=== PATIENT | female | born 1990 | race American Indian/Alaskan Native ===

== ENCOUNTER 2020-03-31 13:32 | Emergency (ER) | payer SELFPAY ==
[2020-03-31 13:54] VITALS: BP 136/81
--- NOTE | 2020-03-31 15:43 | Emergency Department Report ---
ED General Adult HPI - General Chief complaint: Skin/Abscess/Foreign Body Stated complaint: INFECTION Time Seen by Provider: 03/31/20 15:12 Source: patient Mode of arrival: Ambulatory Limitations: No Limitations - History of Present Illness Initial comments: This very pleasant 29-year-old female presents the emergency department with chief complaint of draining wounds to her upper buttocks lower back and right axilla. Patient has a past medical history of hidradenitis suppurativa HIV, and diabetes herpes simplex. She is currently on Biktarvy. She reports she [place] and does not yet have a primary care doctor or cartoon designer to follow-up with. She states she has been having some drainage from her lower back and right axilla over the past month and she feels like she may have an infection. She also reports she has an outbreak of herpes simplex and is out of her Valtrex. She denies any associated fever, chills, night sweats, headache, dizziness, blurry vision, nausea,, diarrhea, chest pain, shortness of breath. Pain is a 9 out of 10 described as a constant dull throbbing with no alleviating factors. - Related Data Previous Rx's Medication Instructions Recorded Last Taken Type Acetaminophen with Codeine 1 tab PO Q6HR #12 tab 03/31/20 Unknown Rx [Acetaminophen-Codeine #4 TAB] Clindamycin [Clindamycin CAP] 300 mg PO Q8H #30 cap 03/31/20 Unknown Rx Valacyclovir HCl [Valtrex] 1,000 mg PO BID #14 tablet 03/31/20 Unknown Rx Allergies Allergy/AdvReac Type Severity Reaction Status Date / Time No Known Allergies Allergy Verified 03/31/20 13:51 ED Review of Systems ROS: Stated complaint: INFECTION Other details as noted in HPI Comment: All other systems reviewed and negative Constitutional: denies: chills, fever Eyes: denies: eye pain, eye discharge, vision change ENT: denies: ear pain, throat pain Respiratory: denies: cough, shortness of breath, wheezing Cardiovascular: denies: chest pain, palpitations Endocrine: no symptoms reported Gastrointestinal: denies: abdominal pain, nausea, diarrhea Genitourinary: as per HPI, other. denies: urgency, dysuria, discharge Musculoskeletal: denies: back pain, joint swelling, arthralgia Skin: as per HPI, rash, lesions Neurological: denies: headache, weakness, paresthesias Psychiatric: denies: anxiety, depression Hematological/Lymphatic: denies: easy bleeding, easy bruising ED Past Medical Hx - Past Medical History Previous Medical History?: Yes Additional medical history: hidradenitis suppurativa - Surgical History Past Surgical History?: No - Social History Smoking Status: Never Smoker Substance Use Type: None - Medications Home Medications: Home Medications Medication Instructions Recorded Confirmed Last Taken Type Acetaminophen with Codeine 1 tab PO Q6HR #12 tab 03/31/20 Unknown Rx [Acetaminophen-Codeine #4 TAB] Clindamycin [Clindamycin CAP] 300 mg PO Q8H #30 cap 03/31/20 Unknown Rx Valacyclovir HCl [Valtrex] 1,000 mg PO BID #14 tablet 03/31/20 Unknown Rx ED Physical Exam - General Limitations: No Limitations General appearance: alert, in no apparent distress - Head Head exam: Present: atraumatic, normocephalic - Eye Eye exam: Present: normal appearance, PERRL, EOMI Pupils: Present: normal accommodation - ENT ENT exam: Present: normal exam, normal orophraynx, mucous membranes moist - Neck Neck exam: Present: normal inspection, full ROM. Absent: tenderness, meningismus - Respiratory Respiratory exam: Present: normal lung sounds bilaterally. Absent: respiratory distress, wheezes, rales, rhonchi, stridor - Cardiovascular Cardiovascular Exam: Present: regular rate, normal rhythm, normal heart sounds. Absent: systolic murmur, diastolic murmur, rubs, gallop - GI/Abdominal GI/Abdominal exam: Present: soft, normal bowel sounds. Absent: distended, tenderness, guarding, rebound, rigid - Extremities Exam Extremities exam: Present: normal inspection, full ROM, other (There is multiple track-like lesions in the right axilla with no obvious abscess seen. There is a 1 cm opening. No purulent drainage or odor.). Absent: tenderness, normal capillary refill - Back Exam Back exam: Present: normal inspection, tenderness (There is tenderness to the lower back with multiple scars and track-like lesions. One area of drainage on the right lower back.) - Neurological Exam Neurological exam: Present: alert, oriented X3, normal gait. Absent: motor sensory deficit - Psychiatric Psychiatric exam: Present: normal affect, normal mood - Skin Skin exam: Present: warm, dry, intact, normal color. Absent: rash ED Course Vital Signs 03/31/20 13:51 Temperature 99.0 F Pulse Rate 100 H Respiratory 16 Rate Blood Pressure 136/81 O2 Sat by Pulse 99 Oximetry ED Medical Decision Making - Medical Decision Making Patient has pretty severe hidradenitis. I will treat her with antibiotics, pain medication, outpatient follow-up with dermatology and primary care. She also is concerned because she is out of her Valtrex and was having outbreak of her herpes. I will refill this. Recommended warm compresses and return the emerge department any change or worsening symptoms. She had no infectious symptoms such as fever, chills, night sweats or any other symptoms. She was well- appearing and her vitals relatively stable. She was agreeable this plan and will return the emerge part any change or worsening symptoms. She verbalized understanding the diagnosis, treatment plan and follow-up instructions and all of her questions were answered. - Differential Diagnosis abscess, HS, abrasion, cellulitis Critical care attestation.: If time is entered above; I have spent that time in minutes in the direct care o f this critically ill patient, excluding procedure time. ED Disposition Clinical Impression: Hidradenitis suppurativa, Herpes simplex Disposition: DC-01 TO HOME OR SELFCARE Is pt being admited?: No Condition: Stable Instructions: Acute Rash (ED) Prescriptions: Acetaminophen with Codeine [Acetaminophen-Codeine #4 TAB] 1 tab PO Q6HR #12 tab Clindamycin [Clindamycin CAP] 300 mg PO Q8H #30 cap Valacyclovir HCl [Valtrex] 1,000 mg PO BID #14 tablet Time of Disposition: 15:46
== END 2020-03-31 16:04 | disposition home or self-care (01) ==
LOC: ED 13:32
DX: L73.2 Hidradenitis suppurativa (principal); B00.9 Herpesviral infection, unspecified; Z79.2 Long term (current) use of antibiotics; Z79.899 Other long term (current) drug therapy
CPT/HCPCS: 99282

== ENCOUNTER 2020-05-04 10:23 | Emergency (ER) | payer OTHER ==
[2020-05-04 11:31] VITALS: BP 112/72
[2020-05-04] MEDS ORDERED: MORPHINE 4 MG/1 ML INJ IV ONE (17:46)
[2020-05-04] MEDS ORDERED: SODIUM CHLORIDE 0.9% 1000 ML 1,000 ML IV ONE (17:46)
--- NOTE | 2020-05-04 17:48 | Emergency Department Report ---
ED General Adult HPI - General Chief complaint: Hyperglycemia Stated complaint: PCP SAID COME/INFECTION PUI?: No Time Seen by Provider: 05/04/20 17:28 Source: patient, RN notes reviewed, old records reviewed Mode of arrival: Ambulatory Limitations: No Limitations - History of Present Illness Initial comments: The patient was evaluated in the emergency department for symptoms described in the history of present illness. He/she was evaluated in the context of the global COVID-19 pandemic, which necessitated consideration that the patient might be at risk for infection with the virus that causes COVID-19. Institutional protocols and algorithms that pertain to the evaluation of patients at risk for COVID-19 are in a state of rapid change based on information released by regulatory bodies including the CDC and federal and state organizations. These policies and algorithms were followed during the patient's care in the emergency department. Please note that these policies, procedures and recommendations changed on a rapid basis. During the entire history and physical examination, I am paper wood cutter and escorted by nurse Kimberly Chávez Patient is a 29-year-old female. She has a history of type 1 diabetes. She states that she is not . She also has a history of chronic wounds, secondary to hidradenitis suppurativa. The patient moved here from [place] 2 months ago. The patient was sent to the emergency room by her primary care doctor. The patient complains of chronic right-sided axillary wound, which is aching and throbbing, and does not appear to be new, different or worsening when compared to baseline. She also complains of right medial superior gluteal cheek wound, discharge and infection. She takes Metformin for her diabetes. She denies headache, neck pain, chest pain, abdominal pain, shortness of breath, vomiting, diarrhea, urinary symptoms. She states that if not advised to present to the emergency room by her primary care doctor, she would not have presented on her own. She also has a history of HIV, reports a CD4 count of almost 600, reports undetectable viral load, reports compliance with her antiviral therapy. As far she knows, she has never had a history of AIDS defining illness. Essentially, her primary care doctor referred her to the emergency room for a glucose of 300, and chronic wounds. -: Gradual, week(s) Location: right (Right axilla, right gluteal cheek) Radiation: non-radiation Severity scale (0 -10): 8 Quality: aching Consistency: constant Improves with: rest Worsens with: movement, other (Palpation) - Related Data Previous Rx's Medication Instructions Recorded Last Taken Type Clindamycin [Clindamycin CAP] 300 mg PO Q8H #30 cap 03/31/20 Unknown Rx Valacyclovir HCl [Valtrex] 1,000 mg PO BID #14 tablet 03/31/20 Unknown Rx Acetaminophen [Non-Aspirin Extra 500 mg PO Q6HR PRN #30 tablet 05/04/20 Unknown Rx Strength] Clindamycin [Clindamycin CAP] 300 mg PO Q6H #28 capsule 05/04/20 Unknown Rx Ibuprofen [Motrin] 600 mg PO Q8H PRN #30 tablet 05/04/20 Unknown Rx Allergies Allergy/AdvReac Type Severity Reaction Status Date / Time No Known Allergies Allergy Verified 05/04/20 11:25 ED Review of Systems ROS: Stated complaint: PCP SAID COME/INFECTION Other details as noted in HPI Constitutional: denies: fever Eyes: denies: eye discharge ENT: denies: epistaxis Respiratory: denies: cough Cardiovascular: denies: chest pain Gastrointestinal: denies: abdominal pain Skin: rash, lesions Neurological: denies: weakness Hematological/Lymphatic: denies: easy bleeding ED Past Medical Hx - Past Medical History Hx Diabetes: Yes Additional medical history: hidradenitis suppurativa - Surgical History Additional Surgical History: CSECTION/ TOOTH SURG - Social History Smoking Status: Never Smoker Substance Use Type: None - Medications Home Medications: Home Medications Medication Instructions Recorded Confirmed Last Taken Type Clindamycin [Clindamycin CAP] 300 mg PO Q8H #30 cap 03/31/20 Unknown Rx Valacyclovir HCl [Valtrex] 1,000 mg PO BID #14 tablet 03/31/20 Unknown Rx Acetaminophen [Non-Aspirin Extra 500 mg PO Q6HR PRN #30 tablet 05/04/20 Unknown Rx Strength] Clindamycin [Clindamycin CAP] 300 mg PO Q6H #28 capsule 05/04/20 Unknown Rx Ibuprofen [Motrin] 600 mg PO Q8H PRN #30 tablet 05/04/20 Unknown Rx ED Physical Exam - General Limitations: No Limitations General appearance: alert, anxious, obese - Head Head exam: Present: atraumatic, normocephalic - Eye Eye exam: Present: normal appearance, EOMI. Absent: nystagmus - ENT ENT exam: Present: normal exam, normal orophraynx, mucous membranes moist, nor mal external ear exam - Neck Neck exam: Present: normal inspection, full ROM. Absent: tenderness, meningismus - Respiratory Respiratory exam: Present: normal lung sounds bilaterally. Absent: respiratory distress, wheezes, rales, rhonchi, stridor, decreased breath sounds - Cardiovascular Cardiovascular Exam: Present: regular rate, normal rhythm, normal heart sounds. Absent: bradycardia, tachycardia, irregular rhythm, systolic murmur, diastolic murmur, rubs, gallop - GI/Abdominal GI/Abdominal exam: Present: soft, normal bowel sounds. Absent: distended, tenderness, guarding, rebound, rigid, pulsatile mass - Extremities Exam Extremities exam: Present: tenderness (On the right superior medial gluteal cheek, there is mild induration, no fluctuance, and discharge. The gluteal compartments are soft.), other (2+ pulses noted in the bilateral upper and lower extremities. There is no palpable cord. negative Homans sign. Muscular compartments are soft. The pelvis is stable.). Absent: normal inspection (There is a chronic appearing wounds and skin defect in the right axilla. Chronic appearing wounds noted in the left axilla. Bilateral axilla are free of redness, pus, streaking. Compartments are soft.), calf tenderness - Back Exam Back exam: Present: normal inspection, full ROM. Absent: tenderness, CVA tenderness (R), CVA tenderness (L), paraspinal tenderness, vertebral tenderness - Neurological Exam Neurological exam: Present: alert, normal gait, other (No facial droop. Tongue midline. Extraocular movements intact bilaterally. Facial sensation intact to light touch in V1, V2, V3 distribution bilaterally. 5 and a 5 strength in 4 extremities. Sensation intact to light touch in 4 extremities.). Absent: motor sensory deficit - Psychiatric Psychiatric exam: Present: normal affect, normal mood - Skin Skin exam: Present: warm ED Course Vital Signs 05/04/20 05/04/20 11:30 18:30 Temperature 98.1 F Pulse Rate 98 H Respiratory 18 18 Rate Blood Pressure 112/72 [Left] O2 Sat by Pulse 100 100 Oximetry ED Medical Decision Making - Lab Data Result diagrams: 05/04/20 Unknown 05/04/20 Unknown Vital Signs 05/04/20 05/04/20 11:30 18:30 Temperature 98.1 F Pulse Rate 98 H Respiratory 18 18 Rate Blood Pressure 112/72 [Left] O2 Sat by Pulse 100 100 Oximetry Lab Results 05/04/20 05/04/20 05/04/20 Range/Units 11:49 Unknown Unknown WBC 9.5 (4.5-11.0) K/mm3 RBC 3.40 L (3.65-5.03) M/mm3 Hgb 10.6 (10.1-14.3) gm/dl Hct 31.3 (30.3-42.9) % MCV 92 (79-97) fl MCH 31 (28-32) pg MCHC 34 (30-34) % RDW 15.1 (13.2-15.2) % Plt Count 558 H (140-440) K/mm3 Lymph % (Auto) 28.6 (13.4-35.0) % Zavala % (Auto) 4.7 (0.0-7.3) % Eos % (Auto) 2.7 (0.0-4.3) % Baso % (Auto) 0.4 (0.0-1.8) % Lymph # (Auto) 2.7 (1.2-5.4) K/mm3 Zavala # (Auto) 0.4 (0.0-0.8) K/mm3 Eos # (Auto) 0.3 (0.0-0.4) K/mm3 Baso # (Auto) 0.0 (0.0-0.1) K/mm3 Seg Neutrophils % 63.6 (40.0-70.0) % Seg Neutrophils # 6.0 (1.8-7.7) K/mm3 PT 13.9 (12.2-14.9) Sec. INR 1.06 (0.87-1.13) VBG pH (7.320-7.420) Sodium (137-145) mmol/L Potassium (3.6-5.0) mmol/L Chloride (98-107) mmol/L Carbon Dioxide (22-30) mmol/L Anion Gap mmol/L BUN (7-17) mg/dL Creatinine (0.6-1.2) mg/dL Estimated GFR ml/min BUN/Creatinine Ratio % Glucose (65-100) mg/dL POC Glucose 303 H (70-105) mg/dL Calcium (8.4-10.2) mg/dL Magnesium (1.7-2.3) mg/dL Total Bilirubin (0.1-1.2) mg/dL AST (5-40) units/L ALT (7-56) units/L Alkaline Phosphatase (35-129) units/L Total Creatine Kinase (30-135) units/L Total Protein (6.3-8.2) g/dL Albumin (3.9-5) g/dL Albumin/Globulin Ratio % HCG, Quant (0-4) mIU/mL 05/04/20 05/04/20 05/04/20 Range/Units Unknown Unknown Unknown WBC (4.5-11.0) K/mm3 RBC (3.65-5.03) M/mm3 Hgb (10.1-14.3) gm/dl Hct (30.3-42.9) % MCV (79-97) fl MCH (28-32) pg MCHC (30-34) % RDW (13.2-15.2) % Plt Count (140-440) K/mm3 Lymph % (Auto) (13.4-35.0) % Zavala % (Auto) (0.0-7.3) % Eos % (Auto) (0.0-4.3) % Baso % (Auto) (0.0-1.8) % Lymph # (Auto) (1.2-5.4) K/mm3 Zavala # (Auto) (0.0-0.8) K/mm3 Eos # (Auto) (0.0-0.4) K/mm3 Baso # (Auto) (0.0-0.1) K/mm3 Seg Neutrophils % (40.0-70.0) % Seg Neutrophils # (1.8-7.7) K/mm3 PT (12.2-14.9) Sec. INR (0.87-1.13) VBG pH 7.337 (7.320-7.420) Sodium 138 (137-145) mmol/L Potassium 3.8 (3.6-5.0) mmol/L Chloride 100.5 (98-107) mmol/L Carbon Dioxide 19 L (22-30) mmol/L Anion Gap 22 mmol/L BUN 13 (7-17) mg/dL Creatinine 0.7 (0.6-1.2) mg/dL Estimated GFR > 60 ml/min BUN/Creatinine Ratio 19 % Glucose 273 H (65-100) mg/dL POC Glucose (70-105) mg/dL Calcium 9.4 (8.4-10.2) mg/dL Magnesium 1.90 (1.7-2.3) mg/dL Total Bilirubin 0.20 (0.1-1.2) mg/dL AST 9 (5-40) units/L ALT 6 L (7-56) units/L Alkaline Phosphatase 101 (35-129) units/L Total Creatine Kinase 20 L (30-135) units/L Total Protein 8.9 H (6.3-8.2) g/dL Albumin 3.5 L (3.9-5) g/dL Albumin/Globulin Ratio 0.6 % HCG, Quant < 2 (0-4) mIU/mL - Medical Decision Making Differential diagnosis, include but not limited to: Hidradenitis, hyperglycemia, chronic wounds Assessment and plan: 29-year-old female, with hidradenitis, chronic wounds, bilateral axilla did not appear to be clinically superinfected, has mild right superior gluteal cheek discharge, and infection, who is afebrile with reassuring vital signs, with minimal hypoglycemia. Glucose and laboratory studies have reviewed and appreciated. Patient observed in this department for hours without clinical decompensation. She endorses that she would like to be discharged to follow-up as an outpatient. I contacted our general surgeon on-call, Dr. Ki Law, And discussed the patient's history, physical, pertinent laboratory studies and examination findings. He agrees that if the patient so desires, she could follow-up with him in the outpatient office, however, the patient will be best served by following up with our local wound care center. Therefore, I will refer to patient to both our local wound care center/facility, as well as the aforementioned general surgeon. She can continue her current home medication/Metformin, and participate in diet and lifestyle adjustments. Critical care attestation.: If time is entered above; I have spent that time in minutes in the direct care of this critically ill patient, excluding procedure time. ED Disposition Clinical Impression: Hyperglycemia, Hidradenitis, Chronic wound of extremity Disposition: DC-01 TO HOME OR SELFCARE Is pt being admited?: No Does the pt Need Aspirin: No Condition: Stable Additional Instructions: Take the pain medications as needed and directed. Continue current home medications for diabetes, and HIV. Recommend patient follow-up in the wound clinic or with a general surgeon for chronic wounds, within the next 7 to 10 days. Patient may follow-up with the following general surgeons: Dr. Ki Law, Dr King Nagy In addition, recommend patient follow-up at the health department, or infectious disease doctor, such as Dr. Luna, within the next month. Patient may also follow-up with her primary care doctor within the next month. Please return to the emergency room right away with new pain, worsened pain, migration of pain, fevers, chills, lethargy, irritability, projectile vomiting, change in mental status, confusion, inability to tolerate liquid feeds, new, worsened or different symptoms not present on the initial emergency room evaluation. Recommend alternating ice packs, and heat packs/pads to chronic wounds. Referrals: ELKE LAW MD [Staff Physician] - 3-5 Days JENNIFER NAGY DO [Staff Physician] - 3-5 Days [facility] [Outside] - 3-5 Days VALENTINA LUNA MD [Staff Physician] - 3-5 Days [facility] [Outside] - 3-5 Days
[2020-05-04 19:56] LABS: Basophils % (Auto) 0.4 % (0.0-1.8); Eosinophils # (Auto) 0.3 K/mm3 (0.0-0.4); Eosinophils % (Auto) 2.7 % (0.0-4.3); Hematocrit 31.3 % (30.3-42.9); Hemoglobin 10.6 gm/dl (10.1-14.3); Lymphocytes # (Auto) 2.7 K/mm3 (1.2-5.4); Lymphocytes % (Auto) 28.6 % (13.4-35.0); Mean Corpuscular HGB Conc 34 % (30-34); Mean Corpuscular Volume 92 fl (79-97); Monocytes # (Auto) 0.4 K/mm3 (0.0-0.8); Monocytes % (Auto) 4.7 % (0.0-7.3); Platelet Count 558 K/mm3 (140-440); Red Cell Distribution Width 15.1 % (13.2-15.2)
[2020-05-04 20:04] LABS: INR 1.06 (0.87-1.13)
[2020-05-04 20:18] LABS: Alanine Aminotransferase 6 units/L (7-56); Albumin 3.5 g/dL (3.9-5); Blood Urea Nitrogen 13 mg/dL (7-17); Calcium 9.4 mg/dL (8.4-10.2); Hemolysis Index 5
[2020-05-04 20:29] LABS: BUN/Creatinine Ratio 19
[2020-05-04] MEDS ORDERED: KETOROLAC 30 MG/1 ML INJ IV ONE (20:34)
[2020-05-04] MEDS ORDERED: INSULIN REGULAR, HUMAN 100 UNIT/ML 3ML VIAL IV ONE (20:34)
[2020-05-04] MEDS ORDERED: CLINDAMYCIN 300 MG/50 mL 300 MG/50 ML BAG IV ONE (20:34)
[2020-05-04] MEDS ORDERED: INSULIN REGULAR, HUMAN 100 UNITS/1 ML ONE (21:00)
== END 2020-05-04 22:17 | disposition home or self-care (01) ==
LOC: ED 10:23
DX: E11.65 Type 2 diabetes mellitus with hyperglycemia (principal); L73.2 Hidradenitis suppurativa; L08.9 Local infection of the skin and subcutaneous tissue, unspecified; Z98.890 Other specified postprocedural states; Z79.1 Long term (current) use of non-steroidal anti-inflammatories (NSAID); Z79.2 Long term (current) use of antibiotics; Z79.899 Other long term (current) drug therapy
CPT/HCPCS: 36415; 80053; 82550; 82805; 82962; 83735; 84702; 85025; 85610; 96361; 96365; 96375; 99284; J1885; J2270; J7030; J1815

== ENCOUNTER 2022-01-19 12:57 | Emergency (ER) | payer OTHER ==
[2022-01-19] MEDS ORDERED: ACETAMINOPHEN 500 MG TAB PO ONE (14:52)
--- NOTE | 2022-01-19 14:55 | Emergency Department Report ---
ED Female HPI - General Chief complaint: Fever Stated complaint: CHILLS/LEFT SIDE PAIN Time Seen by Provider: 01/19/22 14:50 Source: patient Mode of arrival: Ambulatory Limitations: No Limitations - History of Present Illness MD Complaint: dysuria (with flank pain) -: Last night Radiation: L flank Severity: mild Quality: cramping Consistency: constant Improves with: none Worsens with: movement Are you Now?: No - Related Data Sexually active: Yes Previous Rx's Medication Instructions Recorded Last Taken Type Clindamycin [Clindamycin CAP] 300 mg PO Q8H #30 cap 03/31/20 Unknown Rx Valacyclovir HCl [Valtrex] 1,000 mg PO BID #14 tablet 03/31/20 Unknown Rx Acetaminophen [Non-Aspirin Extra 500 mg PO Q6HR PRN #30 tablet 05/04/20 Unknown Rx Strength] Clindamycin [Clindamycin CAP] 300 mg PO Q6H #28 capsule 05/04/20 Unknown Rx Ibuprofen [Motrin] 600 mg PO Q8H PRN #30 tablet 05/04/20 Unknown Rx Morphine Sulfate [Morphine Sulfate 7.5 mg PO Q6HR PRN #10 tablet 05/04/20 Unknown Rx IR] Allergies Allergy/AdvReac Type Severity Reaction Status Date / Time No Known Allergies Allergy Verified 01/19/22 13:08 ED Review of Systems ROS: Stated complaint: CHILLS/LEFT SIDE PAIN Other details as noted in HPI Comment: All other systems reviewed and negative ED Past Medical Hx - Past Medical History Hx Diabetes: Yes Additional medical history: hidradenitis suppurativa - Surgical History Additional Surgical History: CSECTION/ TOOTH SURG - Social History Smoking Status: Current Every Day Smoker - Medications Home Medications: Home Medications Medication Instructions Recorded Confirmed Last Taken Type Clindamycin [Clindamycin CAP] 300 mg PO Q8H #30 cap 03/31/20 Unknown Rx Valacyclovir HCl [Valtrex] 1,000 mg PO BID #14 tablet 03/31/20 Unknown Rx Acetaminophen [Non-Aspirin Extra 500 mg PO Q6HR PRN #30 tablet 05/04/20 Unknown Rx Strength] Clindamycin [Clindamycin CAP] 300 mg PO Q6H #28 capsule 05/04/20 Unknown Rx Ibuprofen [Motrin] 600 mg PO Q8H PRN #30 tablet 05/04/20 Unknown Rx Morphine Sulfate [Morphine Sulfate 7.5 mg PO Q6HR PRN #10 tablet 05/04/20 Unknown Rx IR] ED Physical Exam - General Limitations: No Limitations General appearance: alert, in no apparent distress - Head Head exam: Present: atraumatic, normocephalic - Eye Eye exam: Present: normal appearance - ENT ENT exam: Present: mucous membranes moist - Neck Neck exam: Present: normal inspection - Respiratory Respiratory exam: Present: normal lung sounds bilaterally. Absent: respiratory distress - Cardiovascular Cardiovascular Exam: Present: regular rate, normal rhythm. Absent: systolic murmur, diastolic murmur, rubs, gallop - GI/Abdominal GI/Abdominal exam: Absent: tenderness, guarding, rebound, hypoactive bowel sounds - Extremities Exam Extremities exam: Present: normal inspection - Back Exam Back exam: Present: CVA tenderness (L). Absent: CVA tenderness (R), muscle spas m, paraspinal tenderness - Neurological Exam Neurological exam: Present: alert, oriented X3 - Psychiatric Psychiatric exam: Present: normal affect, normal mood - Skin Skin exam: Present: warm, dry, intact, normal color. Absent: rash Critical care attestation.: If time is entered above; I have spent that time in minutes in the direct care of this critically ill patient, excluding procedure time. ED Disposition Condition: Stable
== END 2022-01-21 10:06 | disposition left against medical advice (07) ==
LOC: ED 12:57
DX: R50.9 Fever, unspecified (principal)
CPT/HCPCS: 99281